=== PATIENT | male | born 1950 | race Caucasian/White ===

== ENCOUNTER 2023-03-08 06:56 | Emergency (ER) | payer MEDICARE, OTHER ==
[2023-03-08 07:12] VITALS: BP 138/76; PULSE 96
[2023-03-08 07:58] LABS: CHLORIDE,CL 101 mEq/L (98-106); SODIUM,NA 139 mEq/L (136-145)
[2023-03-08 08:03] LABS: ESTIMATED GFR 64 mL/min (>=60)
[2023-03-08] MEDS: Acetaminophen 325 MG Tab PO ONE (08:03)
[2023-03-08] MEDS: Potassium Chloride 10 MEQ Tab.ER PO ONE (08:28)
[2023-03-08] MEDS: Sodium Chloride 0.9% 1,000 ML IV STA (08:34)
[2023-03-08] MEDS: Magnesium Sulfate/Water 2 GM in Premix Bag 1 BAG IV ONE (08:34)
== END 2023-03-08 11:30 | disposition home or self-care (01) ==
LOC: CC.ED 06:56
DX: B34.9 Viral infection, unspecified (principal); E87.6 Hypokalemia; E83.42 Hypomagnesemia; I25.10 Atherosclerotic heart disease of native coronary artery without angina pectoris; E78.00 Pure hypercholesterolemia, unspecified; I10 Essential (primary) hypertension; E11.9 Type 2 diabetes mellitus without complications; E66.9 Obesity, unspecified; Z88.7 Allergy status to serum and vaccine; Z79.82 Long term (current) use of aspirin; Z79.899 Other long term (current) drug therapy; Z79.84 Long term (current) use of oral hypoglycemic drugs; Z20.822 Contact with and (suspected) exposure to COVID-19; Z68.35 Body mass index [BMI] 35.0-35.9, adult
CPT/HCPCS: 36415; 71046; 80053; 81001; 83735; 85025; 86140; 96365; 96366; 99283-25; 99284; A9270-GY; J3475; J7030; U0002